=== PATIENT | female | born 1995 | race Caucasian/White ===

== ENCOUNTER 2019-07-20 12:34 | Inpatient (IN) ==
[2019-07-20] MEDS ORDERED: ONDANSETRON 4 MG/2 ML VIAL IV PRN (15:21)
[2019-07-20] MEDS ORDERED: BUTORPHANOL 2 MG/ML VIAL IV PRN (15:21)
[2019-07-20] MEDS ORDERED: MEPERIDINE 50 MG/1 ML VIAL IV PRN (15:21)
[2019-07-20] MEDS ORDERED: ePHEDrine 50 MG/ML AMP IV PRN (15:27)
[2019-07-20] MEDS ORDERED: NALOXONE 0.4 MG/ML VIAL IV PRN (15:27)
[2019-07-20] MEDS ORDERED: LACTATED RINGERS 1,000 ML IV ONE (15:27)
[2019-07-20] MEDS ORDERED: diphenhydrAMINE 50 MG/1 ML VIAL IV PRN ×2 (15:27)
[2019-07-20] MEDS ORDERED: OXYTOCIN/LR 20 UNIT/1,000 ML BAG IV SCH (15:30)
[2019-07-20 15:46] LABS: Basophils % 0.2 % (0.0-0.8); Eosinophils # 0.1 10*3/uL (0.0-0.87); Eosinophils % 0.5 % (0.00-10.9); Hematocrit 36.8 VOL% (35.7-47.0); Hemoglobin 11.7 GM/DL (12.0-16.0); Immature Granulocytes % 0.6 %; Immature Granulocytes Absolute 0.06 #; Lymphocytes # 1.8 10*3/uL (1.4-4.0); Lymphocytes % 17.2 % (21.3-54.2); Mean Corpuscular HGB Conc 31.8 GM/DL (32-36); Mean Corpuscular Volume 86.6 FL (87-102); Mean Platelet Volume 10.7 FL (9.6-12.0); Monocytes % 8.3 % (1.7-12.7); Neutrophils % 73.2 % (38.7-73.9); Platelet Count 185 T/CUMM (130-400); Red Blood Count 4.25 MC/CUMM (3.8-5.5); Red Cell Distribution Width 13.4 % (9.3-17.3); White Blood Count 10.4 T/CUMM (4-12)
[2019-07-20] MEDS ORDERED: CITRIC ACID/SODIUM CITRATE 30 ML UDCUP PO ONE (16:27)
[2019-07-20] MEDS ORDERED: CITRIC ACID/SODIUM CITRATE 30 ML UDCUP ONE (16:28)
[2019-07-20] MEDS: LACTATED RINGERS 1,000 ML IV SCH (16:35)
[2019-07-20] MEDS: FAMOTIDINE 20 MG/2 ML VIAL IV SCH (16:36)
[2019-07-20] MEDS: fentaNYL 2 MCG/ROPIV 0.2% EPID 100 ML EPIDURAL SCH (18:18)
[2019-07-20] MEDS ORDERED: fentaNYL 100 MCG/2 ML VIAL ONE ×2 (19:47→20:26)
[2019-07-20 21:03] LABS: Apearance,Urine CLEAR (Clear); Bacteria,Urine Occasional /HPF (Few); Bilirubin,Urine Negative (Negative); Blood, Urine Negative (Negative); Glucose,Urine (UA) Negative (Negative); Ketones,Urine 80 mg/dL (Negative); Mucus,Urine Occasional /LPF (Occasional); Nitrite,Urine Negative (Negative); Protein,Urine Negative; RBC,Urine 1 /HPF (0-4); Squamous Epithelial Cell,Urine Occasional /HPF (0-10); Urine Color Yellow (Yellow); Urine Specific Gravity 1.021 (1.001-1.035); Urine Urobilinogen < 2.0 EU/DL (0.2-1.0); WBC,Urine <1 /HPF (0-6)
[2019-07-21] MEDS ORDERED: LIDOCAINE 1% 50 ML VIAL ONE (01:03)
[2019-07-21] MEDS: FAMOTIDINE 20 MG/2 ML VIAL IV SCH (03:41)
[2019-07-21 05:48] LABS: Basophils % 0.2 % (0.0-0.8); Eosinophils % 0.1 % (0.00-10.9); Hematocrit 32.7 VOL% (35.7-47.0); Hemoglobin 10.6 GM/DL (12.0-16.0); Immature Granulocytes % 0.6 %; Immature Granulocytes Absolute 0.07 #; Lymphocytes # 1.6 10*3/uL (1.4-4.0); Lymphocytes % 12.7 % (21.3-54.2); Mean Corpuscular HGB Conc 32.4 GM/DL (32-36); Mean Corpuscular Volume 86.5 FL (87-102); Mean Platelet Volume 11.1 FL (9.6-12.0); Monocytes % 9.1 % (1.7-12.7); Neutrophils % 77.3 % (38.7-73.9); Platelet Count 163 T/CUMM (130-400); Red Blood Count 3.78 MC/CUMM (3.8-5.5); Red Cell Distribution Width 13.4 % (9.3-17.3); White Blood Count 12.7 T/CUMM (4-12)
[2019-07-21] MEDS: LACTATED RINGERS 1,000 ML IV SCH (08:20)
[2019-07-21] MEDS: fentaNYL 2 MCG/ROPIV 0.2% EPID 100 ML EPIDURAL SCH (08:22)
[2019-07-21] MEDS: DOCUSATE SODIUM 100 MG CAPSULE PO SCH ×2 (08:31→21:05)
[2019-07-21] MEDS: IBUPROFEN 800 MG TABLET PO PRN (08:31)
[2019-07-21] MEDS ORDERED: DIPH/TET/ACEL PERT BOOSTER VACCINE 0.5 ML VIAL IM ONE (10:28)
[2019-07-22 08:19] VITALS: BP 96/50
[2019-07-22] MEDS ORDERED: INFLUENZA VIRUS VACCINE 0.5 ML SYRINGE IM ONE (09:00)
[2019-07-22] MEDS ORDERED: DIPH/TET/ACEL PERT BOOSTER VACCINE 0.5 ML VIAL IM ONE (09:22)
[2019-07-22] MEDS: DOCUSATE SODIUM 100 MG CAPSULE PO SCH (10:00)
[2019-07-22] MEDS: IBUPROFEN 800 MG TABLET PO PRN (10:00)
== END 2019-07-22 13:25 | disposition home or self-care (01) | DRG 807 ==
LOC: N.LDOUT 12:34 → N.LD 12:35 → N.OB 07-21 01:45
PROVIDERS: ADMIT Obstetrics & Gynecology; ATTEND Obstetrics & Gynecology